=== PATIENT | female | born 1980 | race Caucasian/White ===

== ENCOUNTER → 2017-01-23 | Outpatient (CLI) | payer BC ==
--- NOTE | 2017-01-23 11:57 | DI ---
MRI BRAIN SCAN WITHOUT AND WITH IV CONTRAST, 01/23/2017 9:43 AM: Clinical History: Frequent headaches. Previous Exam: None at this facility. Sequences: Axial and sagittal T1 pre contrast and axial and coronal post contrast; axial T2 and FLAIR . Diffusion weighted images with ADC mapping are also performed. 12 mL of ProHance (279.3 mg/mL) was injected IV. The 4th, 3rd, and lateral ventricles are of normal size, shape, position, and contour for this patien t's age. 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 There are no focal areas of abnormally increased or decreased signal intens ity. There are no abnormal enhancing lesions. Both cerebellar tonsils are at the level of the foramen magnum but do not descend below the foramen magnum. Diffusion-weighted imaging with ADC mapping is n ormal. There are no extracerebral mantels or shift of the midline structures. The paranasal sinuses a re normal. Reading: Normal pre-and postcontrast MRI brain scan.
== END ==
LOC: MRI 09:39
PROVIDERS: ATTEND Nurse Practitioner Family
DX: R51 Headache (principal)
CPT/HCPCS: 70553